=== PATIENT | male | born 1970 | race Caucasian/White ===

== ENCOUNTER 2017-02-02 08:55 | Observation (INO) | payer BC ==
[2017-02-02] MEDS ORDERED: ONDANSETRON 4 MG/2 ML VIAL IVP STA ×2 (09:06→13:09)
[2017-02-02] MEDS ORDERED: SODIUM CHLORIDE 0.9% 1,000 ML IV ONE ×3 (09:06→14:46)
[2017-02-02] MEDS ORDERED: ONDANSETRON 4 MG/2 ML VIAL ONE ×2 (09:43→13:12)
[2017-02-02] MEDS ORDERED: PROMETHAZINE INJ 25 MG in SODIUM CHLORIDE 0.9% 50 ML IV STA ×2 (11:04→14:17)
[2017-02-02] MEDS ORDERED: PROMETHAZINE 25 MG/1 ML VIAL ONE ×2 (11:06→14:43)
[2017-02-02] MEDS ORDERED: PIPERACILLIN/TAZOBACTAM 3.375 GM in SODIUM CHLORIDE 0.9% MINIBAG 100 ML IV STA (14:10)
[2017-02-02] MEDS ORDERED: MORPHINE 2 MG/ML SYRINGE IVP STA (14:17)
[2017-02-02] MEDS ORDERED: MORPHINE 2 MG/ML SYRINGE ONE (14:43)
[2017-02-02] MEDS: AMPICILLIN/SULBACTAM 3 GM in SODIUM CHLORIDE 0.9% MINIBAG 100 ML IV SCH ×2 (17:30→22:09)
[2017-02-02] MEDS: LACTATED RINGERS 1,000 ML IV SCH (17:30)
[2017-02-02] MEDS: HYDROmorphone 1 MG/ML SYRINGE IVP PRN ×2 (17:36→20:44)
[2017-02-02] MEDS: SODIUM CHLORIDE FLUSH 0.9% 10 ML SYRINGE IVP SCH (18:30)
[2017-02-02] MEDS: ONDANSETRON 4 MG/2 ML VIAL IVP PRN (20:51)
[2017-02-02] MEDS: FAMOTIDINE 20 MG/50 ML 50 ML IV SCH (21:10)
[2017-02-03] MEDS: SODIUM CHLORIDE FLUSH 0.9% 10 ML SYRINGE IVP PRN ×3 (01:21→06:39)
[2017-02-03] MEDS: HYDROmorphone 1 MG/ML SYRINGE IVP PRN ×7 (01:21→21:08)
[2017-02-03] MEDS: AMPICILLIN/SULBACTAM 3 GM in SODIUM CHLORIDE 0.9% MINIBAG 100 ML IV SCH ×5 (01:25→23:34)
[2017-02-03] MEDS: LACTATED RINGERS 1,000 ML IV SCH ×4 (02:59→21:08)
[2017-02-03] MEDS: ACETAMINOPHEN 1,000 MG/100 ML 100 ML IV PRN ×3 (05:23→17:39)
[2017-02-03] MEDS: SODIUM CHLORIDE FLUSH 0.9% 10 ML SYRINGE IVP SCH ×3 (07:02→20:58)
[2017-02-03] MEDS: ENOXAPARIN 40 MG/0.4 ML SYRINGE SUBQ SCH (09:27)
[2017-02-03] MEDS: FAMOTIDINE 20 MG/50 ML 50 ML IV SCH ×2 (09:31→20:57)
[2017-02-03] MEDS: LORazepam 2 MG/ML SYRINGE IVP PRN ×2 (17:41→21:08)
[2017-02-03] MEDS: guaiFENesin 600 MG TABLET PO SCH (20:57)
[2017-02-04] MEDS: HYDROmorphone 1 MG/ML SYRINGE IVP PRN (01:58)
[2017-02-04] MEDS: ONDANSETRON 4 MG/2 ML VIAL IVP PRN (01:59)
[2017-02-04] MEDS: ACETAMINOPHEN 1,000 MG/100 ML 100 ML IV PRN (04:39)
[2017-02-04] MEDS: LACTATED RINGERS 1,000 ML IV SCH (06:02)
[2017-02-04] MEDS: SODIUM CHLORIDE FLUSH 0.9% 10 ML SYRINGE IVP SCH ×2 (06:17→13:40)
[2017-02-04] MEDS: AMPICILLIN/SULBACTAM 3 GM in SODIUM CHLORIDE 0.9% MINIBAG 100 ML IV SCH (06:17)
[2017-02-04] MEDS: ENOXAPARIN 40 MG/0.4 ML SYRINGE SUBQ SCH ×2 (07:48→07:53)
[2017-02-04] MEDS: FAMOTIDINE 20 MG/50 ML 50 ML IV SCH (07:48)
[2017-02-04] MEDS ORDERED: LACTATED RINGERS 1,000 ML IV SCH ×2 (09:00→17:00)
[2017-02-04] MEDS: guaiFENesin 600 MG TABLET PO SCH (10:18)
[2017-02-04] MEDS ORDERED: MORPHINE 2 MG/ML SYRINGE IVP SCH (13:00)
[2017-02-04] MEDS ORDERED: AMPICILLIN/SULBACTAM 3 GM in SODIUM CHLORIDE 0.9% MINIBAG 100 ML IV SCH (14:00)
[2017-02-04] MEDS ORDERED: ACETAMINOPHEN 325 MG TABLET PO PRN (17:15)
== END 2017-02-04 19:15 | disposition home or self-care (01) ==
DX: K82.8 Other specified diseases of gallbladder (principal); R51 Headache; R79.89 Other specified abnormal findings of blood chemistry; E66.9 Obesity, unspecified; Z68.30 Body mass index [BMI] 30.0-30.9, adult
CPT/HCPCS: 36415; 70486; 74181; 76705; 78227; 80053; 81001; 82150; 82248; 83690; 85025; 96361; 96365; 96366; 96367; 96375; 96376; 99217; 99218; 99224; 99284; A9270; A9537; J0131; J1170; J2060; J7120

== ENCOUNTER 2019-02-06 08:52 | Outpatient (CLI) | payer BC ==
--- NOTE | 2019-02-08 10:44 | CT Report ---
Reason: FACIAL PAIN,NASAL OBSTRUCTION,ALLERGIC RHINITIS,CH Procedure Date: 02/06/2019 Accession Number: [id number] / [id number] Procedure: CT - Sinuses CPT Code: FULL RESULT: EXAM: CT SINUS EXAM DATE: 02/06/2019 09:18 AM. HISTORY: Facial pain, nasal obstruction, allergic rhinitis, chronic. COMPARISONS: SINUSES 02/03/2017 8:51 PM. TECHNIQUE: Routine multi-axial CT imaging performed through the sinuses. Iodinated IV contrast: None. Reconstructions: Multiplanar reformats. In accordance with CT protocol optimization, one or more of the following dose reduction techniques were utilized for this exam: automated exposure control, adjustment of mA and/or KV based on patient size, or use of iterative reconstructive technique. FINDINGS: RIGHT Frontal: Normal. Ethmoid: Mild mucoperiosteal thickening. Maxillary: Interval development of marked mucosal thickening with mucoid retention cysts, 50% opacification. Sphenoid: Normal. Drainage Pathways: The ostiomeatal complex on the right demonstrates mucoid obstruction with a prominent Bello cell, anatomic narrowing. The frontal recess and sphenoethmoidal recess are patent and normal. LEFT Frontal: Patent. Ethmoid: Mild mucoperiosteal thickening. Maxillary: Interval development of marked mucoperiosteal thickening with mucoid retention cyst, 25 to 30% opacification. Sphenoid: Normal. Drainage Pathways: The ostiomeatal unit is anatomically narrowed by a prominent partially opacified Bello cell but is patent at the time of imaging. The frontal recess and sphenoethmoidal recess are patent and normal. Nasal Cavity: Turbinates are thickened with demineralization and there is mild deviation of the nasal septum. Osseous Structures: Mastoid air cells are clear and no fracture is seen. Orbits: Unremarkable. Other: None. 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 RADIA
== END 2019-02-06 08:53 | disposition home or self-care (01) ==
LOC: DI 08:52
PROVIDERS: ATTEND Otolaryngology
DX: J32.8 Other chronic sinusitis (principal); J34.89 Other specified disorders of nose and nasal sinuses; R51 Headache; J30.89 Other allergic rhinitis
CPT/HCPCS: 70486

== ENCOUNTER 2023-09-24 07:56 | Outpatient (CLI) | payer BC ==
[2023-09-24 11:58] LABS: BASOPHILS # (AUTO) 0.1 10^3/uL (0.0-0.1); EOSINOPHILS # (AUTO) 0.2 10^3/uL (0.0-0.7); EOSINOPHILS % (AUTO) 2.8 %; HCT - HEMATOCRIT 45.7 % (42.0-52.0); HGB - HEMOGLOBIN 14.8 g/dL (14.0-18.0); LYMPHOCYTES # (AUTO) 2.3 10^3/uL (1.5-3.5); LYMPHOCYTES % (AUTO) 28.5 %; MEAN CORPUSCULAR HEMOGLOBIN 29.8 pg (27.0-31.0); MEAN CORPUSCULAR HGB CONC 32.4 g/dL (32.0-36.0); MEAN CORPUSCULAR VOLUME 92.1 fL (80.0-94.0); MEAN PLATELET VOLUME 11.1 fL (7.4-11.4); MONOCYTES # (AUTO) 0.8 10^3/uL (0.0-1.0); MONOCYTES % (AUTO) 9.5 %; NEUTROPHILS # (AUTO) 4.7 10^3/uL (1.5-6.6); NEUTROPHILS % (AUTO) 57.7 %; PLT - PLATELET COUNT 296 10^3/uL (130-450); RED BLOOD COUNT 4.96 10^6/uL (4.70-6.10); RED CELL DISTRIBUTION WIDTH 12.3 % (12.0-15.0); WHITE BLOOD COUNT 8.1 x10^3/uL (4.8-10.8)
[2023-09-24 12:27] LABS: ALBUMIN 4.3 g/dL (3.2-5.5); ALBUMIN/GLOBULIN RATIO 1.3 (1.0-2.2); ALKALINE PHOSPHATASE 118 IU/L (42-121); ALT ALANINE AMINOTRANSFERASE 48 IU/L (10-60); AST ASPARTATE AMINOTRANSFERASE 23 IU/L (10-42); BUN - BLOOD UREA NITROGEN 15 mg/dL (6-20); CARBON DIOXIDE - CO2 30 mmol/L (21-32); CHLORIDE 102 mmol/L (101-111); CHOL/HDL RATIO 4.1 (<5.0); CHOLESTEROL 178 mg/dL; GFR - MDRD 79 (>89); GLUCOSE 102 mg/dL (74-104); HDL CHOLESTEROL 43 mg/dL; LDL CHOLESTEROL,CALCULATED 97 mg/dL; LDL/HDL RATIO 2.3 (<3.6); SODIUM 138 mmol/L (135-145); TOTAL PROTEIN 7.5 g/dL (6.4-8.9); TRIGLYCERIDES 190 mg/dL (48-352); VLDL CHOLESTEROL 38 mg/dL
[2023-09-24 12:35] LABS: THYROID STIMULATING HORMONE 1.61 uIU/mL (0.34-5.60)
== END 2023-09-24 07:57 | disposition home or self-care (01) ==
LOC: LAB.N 07:56
PROVIDERS: ATTEND Physician Assistant
DX: I21.09 ST elevation (STEMI) myocardial infarction involving other coronary artery of anterior wall (principal); E78.5 Hyperlipidemia, unspecified
CPT/HCPCS: 36415; 80053; 80061; 83721; 84443; 85025

== ENCOUNTER 2023-12-18 12:41 | Outpatient (CLI) | payer BC ==
--- NOTE | 2023-12-18 13:33 | Sleep Patient Instructions ---
Sleep Center Visit Summary - Patient Visit Information Reason for Visit: Initial consult for evaluation of sleep disordered breathing and other sleep issues. - Patient Instructions Instructions Attached: Sleep Study, Sleep Study Home Monitor Additional Instructions: You will be completing a sleep study, either an in-lab polysomnography (PSG) or home sleep study (HST). You will follow-up in the sleep care office after the sleep study is completed to hear the results and talk about therapy, if needed. You will be called by our office staff to schedule this appointment, but you may contact us with any questions. - Clinic Information Contact: [facility] [address] [place] [id number] [email or web address] T: [phone]
--- NOTE | 2023-12-18 13:37 | SLEEP CARE CONSULTATION ---
Information from patient questionnaire entered by Chula Khan. I have reviewed and concur with the information entered by Chula Khan. This document represents the service I personally performed and the decisions made by me, Cheli Pablo ARNP. History of Present Illness Service Date and Time: 12/18/2023 1241 Reason for Visit: New patient Chief Complaint: reports: Unrefreshed sleep, Fatigue Date of Onset: INCREASED LAST 12MONTHS Usual bedtime: 12AM Time it takes to fall asleep: 15-45MINS Snores at night: No Observed to quit breathing while asleep: No Sleeps alone due to snoring: No Number of times waking at night: 0-1 Reasons for waking at night: reports: Bathroom, Other (UNKNOWN). denies: Choking, Snoring, Gasping for air Toss, Turn, or Twitch while sleeping: Yes Recalls having dreams: No (rarely, 1 every 2-3 months) Usually gets out of bed at: 830AM Feels refreshed in the morning: No Morning headache: No Sleepy or fatigued during the day: Yes Ever fallen asleep while driving: No Takes day naps: Yes (not intentional naps usually; when watching TV; for 30 mins or more) Dreams during day naps: No Prior sleep studies: No Additional HPI information: I had the pleasure of seeing NAFISA DAN today regarding the possibility of him having a sleep disorder. His current complaints are unrefreshed sleep and fatigue. He says that he feels tired more than he thinks he should. He had a heart attack about a year ago. His tells him only occasionally that he snored. She has heard him stop snoring but not really not breathing. He states since his heart attack he has had more fatigue and he knows he is on medications that could cause fatigue but is looking at other reasons that he could have it. His mother is treated for sleep apnea and his father may have sleep apnea but has never completed testing. He states he lays down late in the evening because if he lays down early he cannot fall asleep for hours. Once going to sleep, he only wakes up once or twice during the night. He denies any gasping for air or choking feelings when waking up at night. He denies waking up with headaches overall. He has times where he will fall asleep unintentionally when watching television in the evening and otherwise does not take naps. 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 Patient is and lives in [place]. Have you smoked in the past 12 months: No Alcohol use: No Caffeine use: Yes Caffeine amount and frequency: 1-3 DAILY Family History Family history of sleep disordered breathing: Yes Family Hx Sleep Apnea: Mother: Sleep apnea - Treated, Father: Snoring, Sleep apnea - Untreated Allergies and Home Medications Known drug allergies: Yes ( LISTED) Drug allergies reviewed: Yes Home medication list reviewed: Yes (as listed) Allergy and home medication list: Allergies venom-honey bee [bee venom (honey bee)] Allergy (Verified 12/16/23 13:48) Anaphylaxis Home Medications Medication Instructions Recorded Confirmed Last Taken Type Aspirin [Vaz[place]] See Rx Instructions .ROUTE .COMPLEX 12/18/23 12/18/23 Unknown History Clopidogrel [Plavix] See Rx Instructions .ROUTE .COMPLEX 12/18/23 12/18/23 Unknown History Losartan Potassium See Rx Instructions .ROUTE .COMPLEX 12/18/23 12/18/23 Unknown History Metoprolol Succinate [Toprol Xl] See Rx Instructions .ROUTE .COMPLEX 12/18/23 12/18/23 Unknown History Rosuvastatin Calcium [Crestor] See Rx Instructions .ROUTE .COMPLEX 12/18/23 12/18/23 Unknown History Review of Systems Weight loss over past 5 years: 10 lbs in last couple months Cardiovascular: reports: high blood pressure Gastrointestinal: reports: heartburn Neurological: denies: headaches Psychiatric: denies: anxiety, depression Ear/Nose/Throat: reports: sinus problems, wisdom teeth removed. denies: tonsillectomy Musculoskeletal: reports: neck pain, back pain Immunologic: reports: allergies to food or environment (bees and multiple other environmental allergies) Physical Exam Vital signs obtained and entered by: CHULA Basilio MA Blood Pressure: 117/86 (LEFT ARM) Cuff size: regular Heart Rate: 79 O2 Saturation: 97 Height: 6 ft Weight: 240 lb Body Mass Index: 32.5 BMI Classification: Obese Neck circumference: 18 Mouth and throat: narrow oropharynx Soft palate: normal Hard palate: normal Uvula: normal Uvula visualization: 100% Mallampati Class I Tongue: enlarged in size with teeth chapa on lateral edges Tonsils: small Neck: normal w/o lymphadenopathy or thyromegaly Heart: regular rate and rhythm Lungs: clear bilaterally Impression and Plan 1. Suspected Obstructive Sleep Apnea-Hypopnea Syndrome, as suggested by a history of mild snoring, unrefreshed sleep and fatigue. Narrow oropharynx and obesity are common predisposing factors for obstructive sleep apnea-hypopnea syndrome. I recommend proceeding to polysomnography to confirm the diagnosis and to assess severity. If the patient has significant sleep disordered breathing, a manual CPAP titration study will also be performed to find the optimal treatment pressure. I informed the patient of what the sleep studies involve and after some discussion, obtained agreement to proceed. The pathophysiology of obstructive sleep apnea-hypopnea syndrome was discussed with the patient and health risks of cardiovascular and cerebrovascular disease if not treated. Risks of drowsy driving discussed in detail and patient advised to avoid long distance driving and to jawbone puller at the first sign of drowsiness. Patient agreed to plan. * Schedule polysomnography +- manual CPAP titration study and return in 1-2 weeks after the study to discuss result and initiate therapy. * Avoid long distance driving or driving when feeling sleepy. * Avoid alcohol, sedative and muscle relaxant around bedtime. * Attempt to lose weight. * Review instructions provided by trained office staff on how to prepare for the sleep study. * Return for follow-up after sleep study completed. Counseling Topics: Weight loss health impact Follow up with Sleep Care in: other (after sleep study resulted) Plan: PSG Visit Type: In Office Time Spent with Patient (minutes): 37 Provider Statement: I spent 100% of the Face to Face Visit with the patient with greater than 50% spent counseling the patient and coordination of care.
[2023-12-18 13:48] VITALS: BP 117/86; O2SAT 97
== END 2023-12-18 12:42 | disposition home or self-care (01) ==
LOC: SC 12:41
PROVIDERS: ATTEND Nurse Practitioner Family
DX: G47.8 Other sleep disorders (principal); R53.83 Other fatigue; R06.83 Snoring; E66.9 Obesity, unspecified; Z68.32 Body mass index [BMI] 32.0-32.9, adult
CPT/HCPCS: 99203; 99212

== ENCOUNTER 2024-01-30 09:30 | Outpatient (CLI) | payer BC | END 2024-01-30 09:31 | disposition home or self-care (01) | LOC: SC 09:30 | PROVIDERS: ATTEND Nurse Practitioner Family | DX: G47.33 Obstructive sleep apnea (adult) (pediatric) (principal); R09.02 Hypoxemia | CPT/HCPCS: 95806 ==

== ENCOUNTER 2024-02-19 13:31 | Outpatient (CLI) | payer BC ==
--- NOTE | 2024-02-19 13:32 | SLEEP CARE CONSULTATION ---
Information from patient questionnaire entered by Chula Khan. I have reviewed and concur with the information entered by Chula Khan. This document represents the service I personally performed and the decisions made by , Cheli Pablo ARNP. History of Present Illness Service Date and Time: 02/19/2024 1320 Initial [place] Sleepiness Scale score: 3 (12/18/23) Current [place] Sleepiness Scale score: 1 (02/19/24) Additional HPI information: NAFISA DAN returns via video appointment for follow up and results of the recently performed home sleep study. The sleep study showed mild obstructive sleep apnea with an average AHI of 10.7 and jose oxygen saturation of 82%. I explained the pathophysiology behind obstructive sleep apnea. We then spent quite a bit of time discussing different treatment options. For mild obstructive sleep apnea, surgery and oral appliance are alternatives to nasal CPAP therapy but in moderate or severe cases, nasal CPAP is the most effective and reliable treatment. Because apnea is primarily in supine position, then positional management therapy could be effective. Methods discussed such as positioning with pillows, using a T-shirt with tennis balls in the back, or commercial products that have a pillow format on back to prevent supine sleep. I reviewed the impact of weight changes on sleep apnea and strongly recommended losing weight. After some discussion, the patient opted to go with the nasal CPAP therapy. Nasal autoCPAP set at 4-15 cmH20 will be ordered with rationale explained. A manual titration study will be ordered if unable to find optimal pressure with o ffice adjustments. I explained how CPAP machine works and what to expect when using the machine. Using CPAP every night in order to get used to it was emphasized. Patient advised to put CPAP mask on before getting into bed so as not to fall asleep without CPAP. To assist acclimation to CPAP use, it could also be used for a short time during day while reading or watching TV. The patient was instructed to call the CPAP supplier to discuss any mechanical problem that may occur. If the mask given is uncomfortable or is difficult to keep on through the night even with adjustment, contact the CPAP supplier as many will replace with another mask style if notified before 30 days. If snoring or perceives is not getting enough air or too much air from the machine, notify this office. Sleep Study - Results Type of Sleep Study: Home sleep study (COMPLETED 01/30/24) Prior sleep studies: No Polysomnography/Home Sleep Study results: Physician Impression: The quality of the study is good. The length of the study is adequate (> 240 minutes). Please also see the tabulated and graphic data. 1. Obstructive Sleep Apnea-Hypopnea (ICD-10 G47.33), mild, with an AHI of 10.7/hr and jose SaO2 of 82%. During the study, the patient had 65 apneas (65 obstructive, 0 central, 0 mixed) and 50 hypopneas. The longest episode lasted 128.0 seconds. The respiratory events occurred more frequently during supine sleep (supine AHI was 37.5 and non-supine, 7.00). 2. Hypoxemia (ICD-10 R09.02), mild, with the lowest oxygen saturation of 82 % and 49.4 minutes with SaO2 under 90%. Baseline oxygen saturation was normal (Average oxygen saturation was 93%). Allergies and Home Medications Known drug allergies: No (as listed) Drug allergies reviewed: Yes Home medication list reviewed: Yes (no changes) Allergy and home medication list: Allergies venom-honey bee [bee venom (honey bee)] Allergy (Verified 12/18/23 12:51) Anaphylaxis Review of Systems Review of systems same as previous: Yes (no changes) Physical Exam Vital signs obtained and entered by: CHULA Basilio MA Height: 6 ft (PER PT) Weight: 230 lb (PER PT) Body Mass Index: 31.1 BMI Classification: Obese Impression and Plan 1. Obstructive Sleep Apnea-Hypopnea Syndrome, mild, with lowest oxygen saturation of 82%. Obviously this is the cause of the patients symptoms of unrefreshed sleep. Positive pressure therapy could benefit hypertension, cardiac disease (CHD, MD). As mentioned above, the patient will be started on nasal autoCPAP therapy with pressure set at 4-15 cmH2O. A manual titration study will be completed if unable to find optimal treatment pressure with office adjustments. Compliance guidelines also reviewed. A copy of compliance guidelines will be given for reference at check out. Because the apnea is more severe supine, I instructed to avoid sleeping supine using pillow positioning until able to start CPAP use. 2. Hypoxemia, mild, with a jose oxygen saturation of 82% and 49.4 minutes spent under 90%. The baseline oxygen saturation was normal with an average oxygen saturation of 93%. 3. Obesity, unspecified. Currently patients BMI is 31.1. Obesity increases the risk of apnea, CPAP pressure requirements and overall health risks especially cardiovascular and diabetes. Thus patient is advised to lose weight. * Nasal auto CPAP therapy, pressure at 4-15 cm H2O. * Attempt to lose weight. * Avoid alcohol consumption near bedtime. * Avoid supine sleep until using CPAP. * The patient is again cautioned about driving until sleepiness completely resolves. * Return one month after CPAP obtained. I will assess response to therapy and compliance at that time. Counseling Topics: Sleeping position, Weight loss health impact Prescriptions: Auto CPAP Plan: Start CPAP and compliance followup Visit Type: Telehealth Video Video Type: achvr Patient Location: [place] Location of Provider: Office Patient agrees and consents to this telehealth visit type: Yes Time Spent with Patient (minutes): 20 Provider Statement: I spent 100% of the Telehealth Video Call with the patient with greater than 50% spent counseling the patient and coordination of care.
== END 2024-02-19 13:32 | disposition home or self-care (01) ==
LOC: SC 13:31
PROVIDERS: ATTEND Nurse Practitioner Family
DX: G47.33 Obstructive sleep apnea (adult) (pediatric) (principal); R09.02 Hypoxemia; E66.9 Obesity, unspecified; Z68.31 Body mass index [BMI] 31.0-31.9, adult